=== PATIENT | male | born 2000 | race African-American/Black ===

== ENCOUNTER 2023-12-20 18:51 | Emergency (ER) | payer OTHER ==
[~2023-12-20] VITALS: Ht 167.6 cm; Wt 72.6 kg
[2023-12-20] MEDS ORDERED: CLINDAMYCIN HCL 150 MG CAP PO ONE ×2 (20:08→20:10)
== END 2023-12-20 21:30 | disposition home or self-care (01) ==
LOC: ED 18:51
DX: K13.0 Diseases of lips (principal)
CPT/HCPCS: 99282